=== PATIENT | male | born 1940 | race Two or more races ===

== ENCOUNTER 2021-07-01 21:04 | Emergency (ER) | payer OTHER ==
[~2021-07-01] VITALS: Ht 165.1 cm; Wt 90.7 kg
[2021-07-01 21:05] VITALS: BP 155/94
[2021-07-01 22:33] LABS: Basophils # (auto) 0 10 ^3/uL (0-0.2); Basophils % (auto) 0.6 % (0.0-2.0); Eosinophils # (auto) 0 10 ^3/uL (0-0.8); Eosinophils % (auto) 1.3 % (0.0-7.0); Hematocrit 29.1 % (41.0-53.0); Hemoglobin 9.7 g/dL (13.5-17.5); Mean Corpuscular Hgb Conc. 33.2 g/dL (32.0-36.0); Mean Corpuscular Volume 90.4 fL (80.0-100.0); Neutrophils # (auto) 1.6 10 ^3/uL (1.6-8.6); Nucleated Red Blood Cells % 0.1 %; Red Blood Cells 3.22 10^6/uL (4.5-5.90); Red Cell Distribution Width 14.8 % (11.8-14.3); White Blood Cell 3.7 10^3/uL (4.4-10.8)
[2021-07-01 22:35] LABS: Monocytes % (auto) 28.1 % (0.0-12.0); Potassium 4.4 mmol/L (3.5-5.1)
[2021-07-01 22:46] LABS: Albumin 3.2 g/dL (3.4-5.0); BUN/Creatinine Ratio 23.2; Bilirubin, Total 1.6 mg/dL (0.2-1.0); Calcium 8.4 mg/dL (8.5-10.1); Total Protein 7.4 g/dL (6.4-8.2)
[2021-07-01] MEDS ORDERED: DexAMETHasone SOD PHOS 10MG/1ML VIAL INJ IM ONE (23:30)
[2021-07-02] MEDS ORDERED: PRED1PAK7 PO (00:13)
[2021-07-02] MEDS ORDERED: NAP500T GT (00:13)
== END 2021-07-02 01:11 | disposition home or self-care (01) ==
LOC: ER 21:04
DX: M25.50 Pain in unspecified joint (principal); I10 Essential (primary) hypertension
CPT/HCPCS: 36415; 80053; 83880; 84484; 85025; 93005; 96372; 99284; J1100

== ENCOUNTER 2021-10-03 16:35 | Inpatient (IN) | payer OTHER ==
[~2021-10-03] VITALS: Ht 165.1 cm; Wt 85.8 kg
[~2021-10-03 16:35] MED LIST: NAP500T GT; PRED1PAK7 PO
[2021-10-03 18:24] LABS: Hemoglobin 9.6 g/dL (13.5-17.5); Mean Corpuscular Volume 93.6 fL (80.0-100.0); Red Blood Cells 3.31 10^6/uL (4.5-5.90); White Blood Cell 4.5 10^3/uL (4.4-10.8)
[2021-10-03 18:26] LABS: Mean Corpuscular Hemoglobin 29.1 pg (28.0-32.0); Mean Corpuscular Hgb Conc. 31.1 g/dL (32.0-36.0); Red Cell Distribution Width 19.6 % (11.8-14.3)
[2021-10-03 18:35] LABS: Albumin 3.4 g/dL (3.4-5.0); Calcium 9.2 mg/dL (8.5-10.1); Potassium 4.2 mmol/L (3.5-5.1)
[2021-10-03 18:36] LABS: Basophils % (manual) 0 (0.0-2.0); Blast Cells 0; Eosinophils % (manual) 0 (0-7); Metamyelocytes % 0; Myelocytes % 0; Promyelocytes % 0; Reactive Lymphocytes 0
[2021-10-03 18:39] LABS: BUN/Creatinine Ratio 14.1; Bilirubin, Total 0.8 mg/dL (0.2-1.0); Total Protein 7.4 g/dL (6.4-8.2)
[2021-10-03 19:13] LABS: INR 0.97 (0.9-1.15); Partial Thromboplastin Time 25.9 sec (24.6-33.4)
[2021-10-03 19:49] LABS: Band Neutrophils % (manual) 1; Lymphocytes % (manual) 53 (10.0-50.0); Monocytes % (manual) 10 (0-12)
[2021-10-03 21:52] LABS: Urine Bacteria FEW /hpf (None Seen); Urine Blood Negative /uL (Negative); Urine Specific Gravity 1.007 (1.001-1.035); Urine WBC <1 /hpf (0 - 3)
[2021-10-04] MEDS ORDERED: ACETAMINOPHEN 325 MG TAB PO PRN (01:00)
[2021-10-04] MEDS ORDERED: DOCUSATE SOD 100 MG CAP PO PRN (01:00)
[2021-10-04] MEDS ORDERED: ONDANSETRON HCL 4 MG/2 ML VIAL IV PRN (01:00)
[2021-10-04] MEDS ORDERED: MECLIZINE HCL 25 MG TAB PO PRN (01:00)
[2021-10-04] MEDS ORDERED: NITROGLYCERIN 0.4 MG SL TAB SL PRN (03:45)
[2021-10-04] MEDS ORDERED: MORPHINE SULFATE INJ 2 MG/ml SYRG IV PRN (03:45)
[2021-10-04] MEDS: SODIUM CHLOR 0.9% PF (SALINE LOCK) 10ML VIAL/SYR IV SCH ×2 (06:00→14:25)
[2021-10-04] MEDS: MULTIPLE VITAMIN TAB PO SCH (10:15)
[2021-10-04] MEDS: FAMOTIDINE (10MG/ML) 2ML VL IV SCH (10:15)
[2021-10-04 11:09] LABS: Basophils # (auto) 0 10 ^3/uL (0-0.2); Basophils % (auto) 0.4 % (0.0-2.0); Eosinophils # (auto) 0 10 ^3/uL (0-0.8); Eosinophils % (auto) 0.4 % (0.0-7.0); Hematocrit 33.7 % (41.0-53.0); Hemoglobin 10.6 g/dL (13.5-17.5); Lymphocytes % (auto) 22.7 % (10.0-50.0); Mean Corpuscular Hemoglobin 29.6 pg (28.0-32.0); Mean Corpuscular Hgb Conc. 31.3 g/dL (32.0-36.0); Mean Corpuscular Volume 94.6 fL (80.0-100.0); Monocytes # (auto) 0.8 10 ^3/uL (0-1.3); Monocytes % (auto) 17.9 % (0.0-12.0); Neutrophils # (auto) 2.7 10 ^3/uL (1.6-8.6); Neutrophils % (auto) 58.6 % (37.0-80.0); Red Blood Cells 3.56 10^6/uL (4.5-5.90); White Blood Cell 4.5 10^3/uL (4.4-10.8)
[2021-10-04 11:29] LABS: Albumin 3.7 g/dL (3.4-5.0); Calcium 9.2 mg/dL (8.5-10.1); Potassium 4.6 mmol/L (3.5-5.1)
[2021-10-04 11:34] LABS: BUN/Creatinine Ratio 13.7
[2021-10-04] MEDS ORDERED: METOPROLOL TARTRATE 50 MG TAB PO SCH (12:00)
[2021-10-04] MEDS: METOPROLOL SUCCINATE XL 50 MG TAB PO SCH (12:02)
[2021-10-04 22:00] VITALS: BP 129/73
[2021-10-05 05:00] VITALS: BP 124/76
[2021-10-05] MEDS: SODIUM CHLOR 0.9% PF (SALINE LOCK) 10ML VIAL/SYR IV SCH ×2 (06:14→13:45)
[2021-10-05 07:54] LABS: Basophils # (auto) 0 10 ^3/uL (0-0.2); Basophils % (auto) 0.6 % (0.0-2.0); Eosinophils # (auto) 0 10 ^3/uL (0-0.8); Eosinophils % (auto) 0.6 % (0.0-7.0); Hematocrit 32.6 % (41.0-53.0); Hemoglobin 10.2 g/dL (13.5-17.5); Lymphocytes # (auto) 1.3 10 ^3/uL (0.4-5.4); Lymphocytes % (auto) 26.9 % (10.0-50.0); Mean Corpuscular Hemoglobin 29.9 pg (28.0-32.0); Mean Corpuscular Hgb Conc. 31.2 g/dL (32.0-36.0); Mean Corpuscular Volume 95.8 fL (80.0-100.0); Monocytes # (auto) 1.1 10 ^3/uL (0-1.3); Neutrophils # (auto) 2.3 10 ^3/uL (1.6-8.6); Neutrophils % (auto) 47.7 % (37.0-80.0); Nucleated Red Blood Cells % 0.1 %; Red Cell Distribution Width 19.3 % (11.8-14.3); White Blood Cell 4.7 10^3/uL (4.4-10.8)
[2021-10-05 08:17] LABS: Calcium 9.1 mg/dL (8.5-10.1); Potassium 4.2 mmol/L (3.5-5.1)
[2021-10-05 08:23] LABS: Albumin 3.5 g/dL (3.4-5.0); BUN/Creatinine Ratio 18.2; Bilirubin, Total 2.1 mg/dL (0.2-1.0); Monocytes % (auto) 24.2 % (0.0-12.0); Total Protein 7.4 g/dL (6.4-8.2)
[2021-10-05 09:00] VITALS: BP 131/79
[2021-10-05] MEDS: FAMOTIDINE (10MG/ML) 2ML VL IV SCH (09:44)
[2021-10-05] MEDS: MULTIPLE VITAMIN TAB PO SCH (09:45)
[2021-10-05] MEDS: METOPROLOL SUCCINATE XL 50 MG TAB PO SCH (09:45)
[2021-10-05 13:00] VITALS: BP 112/75
[2021-10-05 17:00] VITALS: BP 136/68
[2021-10-05 22:00] VITALS: BP 152/71
[2021-10-06 05:00] VITALS: BP 111/72
[2021-10-06] MEDS: SODIUM CHLOR 0.9% PF (SALINE LOCK) 10ML VIAL/SYR IV SCH ×3 (06:00→22:13)
[2021-10-06 08:00] VITALS: BP 106/66
[2021-10-06 09:24] VITALS: BP 106/66
[2021-10-06] MEDS: MULTIPLE VITAMIN TAB PO SCH (09:30)
[2021-10-06] MEDS: METOPROLOL SUCCINATE XL 50 MG TAB PO SCH (09:30)
[2021-10-06] MEDS: FAMOTIDINE (10MG/ML) 2ML VL IV SCH (09:30)
[2021-10-06 12:51] VITALS: BP_SYST 104; BP_SYST 110; BP_DIAS 66; BP_DIAS 70; BP_DIAS 71
[2021-10-06 16:56] VITALS: BP 111/68
[2021-10-06 22:00] VITALS: BP 120/77
[2021-10-07 05:00] VITALS: BP 110/69
[2021-10-07] MEDS: SODIUM CHLOR 0.9% PF (SALINE LOCK) 10ML VIAL/SYR IV SCH ×3 (05:39→22:34)
[2021-10-07 08:48] VITALS: BP 118/73
[2021-10-07] MEDS: MULTIPLE VITAMIN TAB PO SCH (10:11)
[2021-10-07] MEDS: METOPROLOL SUCCINATE XL 50 MG TAB PO SCH (10:12)
[2021-10-07 10:13] LABS: Cholesterol 155 mg/dL (< 200); HDL Cholesterol 49 mg/dL (40-59); LDL Cholesterol 114 mg/dL (< 100); Triglycerides 95 mg/dL (< 150)
[2021-10-07] MEDS: ASPirin-EC 81 mg tab PO SCH (10:13)
[2021-10-07] MEDS ORDERED: OPTISON 3ml Vial for INJ IV ONE (11:12)
[2021-10-07 12:57] VITALS: BP 110/69
[2021-10-07 17:00] VITALS: BP 101/68
[2021-10-07 22:00] VITALS: BP 121/77
[2021-10-07] MEDS: ATORVASTATIN 20 MG TAB PO SCH (22:34)
[2021-10-07] MEDS: ENOXAPARIN SOD 100 MG/1 ML SYRINGE SC SCH (22:35)
[2021-10-08 05:00] VITALS: BP 108/59
[2021-10-08 09:00] VITALS: BP 113/66
[2021-10-08] MEDS: MULTIPLE VITAMIN TAB PO SCH (09:57)
[2021-10-08] MEDS: ASPirin-EC 81 mg tab PO SCH (09:57)
[2021-10-08] MEDS: METOPROLOL SUCCINATE XL 50 MG TAB PO SCH (09:58)
[2021-10-08] MEDS: ENOXAPARIN SOD 100 MG/1 ML SYRINGE SC SCH (09:58)
[2021-10-08] MEDS: HYDROcodone-ACET 5/325MG TAB PO PRN (10:15)
[2021-10-08 13:00] VITALS: BP_SYST 100; BP_SYST 96; BP_DIAS 55; BP_DIAS 60
[2021-10-08 16:53] VITALS: BP 119/66
[2021-10-08] MEDS ORDERED: PANTOPRAZOLE 40 MG TAB PO SCH (17:30)
[2021-10-08] MEDS: SODIUM CHLOR 0.9% PF (SALINE LOCK) 10ML VIAL/SYR IV SCH ×3 (18:03→22:37)
[2021-10-08] MEDS ORDERED: METOPROLOL TARTRATE 25 MG TAB PO ONE (21:00)
[2021-10-08 22:00] VITALS: BP 111/70
[2021-10-08] MEDS: ATORVASTATIN 20 MG TAB PO SCH (22:36)
[2021-10-08] MEDS: ENOXAPARIN SOD 80 MG/0.8ML SYRINGE SC SCH (22:37)
[2021-10-09 05:00] VITALS: BP 112/70
[2021-10-09] MEDS: SODIUM CHLOR 0.9% PF (SALINE LOCK) 10ML VIAL/SYR IV SCH ×3 (06:07→21:32)
[2021-10-09 06:37] LABS: White Blood Cell 3.2 10^3/uL (4.4-10.8)
[2021-10-09 06:39] LABS: Hematocrit 26.3 % (41.0-53.0); Hemoglobin 8.5 g/dL (13.5-17.5); Mean Corpuscular Hemoglobin 30.2 pg (28.0-32.0); Mean Corpuscular Hgb Conc. 32.2 g/dL (32.0-36.0); Mean Corpuscular Volume 93.9 fL (80.0-100.0); Red Cell Distribution Width 19.9 % (11.8-14.3)
[2021-10-09 06:42] LABS: Band Neutrophils % (manual) 0; Basophils % (manual) 0 (0.0-2.0); Blast Cells 0; Metamyelocytes % 0; Promyelocytes % 0; Reactive Lymphocytes 0
[2021-10-09 06:55] LABS: Albumin 2.8 g/dL (3.4-5.0); Calcium 8.5 mg/dL (8.5-10.1); Magnesium 2.4 mg/dL (1.6-2.6); Potassium 3.6 mmol/L (3.5-5.1)
[2021-10-09 06:59] LABS: BUN/Creatinine Ratio 23.2; Bilirubin, Total 1.9 mg/dL (0.2-1.0); Phosphorus 2.7 mg/dL (2.5-4.90); Total Protein 6.5 g/dL (6.4-8.2)
[2021-10-09 07:02] LABS: Eosinophils % (manual) 2 (0-7); Lymphocytes % (manual) 41 (10.0-50.0); Monocytes % (manual) 15 (0-12); Myelocytes % 1
[2021-10-09 08:23] VITALS: BP 113/76
[2021-10-09] MEDS: ENOXAPARIN SOD 80 MG/0.8ML SYRINGE SC SCH ×2 (10:00→21:36)
[2021-10-09] MEDS: ASPirin-EC 81 mg tab PO SCH (10:00)
[2021-10-09] MEDS: MULTIPLE VITAMIN TAB PO SCH (10:03)
[2021-10-09] MEDS: METOPROLOL SUCCINATE XL 50 MG TAB PO SCH (10:06)
[2021-10-09] MEDS: PANTOPRAZOLE 40 MG/10 ML VIAL INJ IV SCH ×2 (10:12→21:32)
[2021-10-09] MEDS ORDERED: GOLYTELY 4L KIT PO ONE (11:45)
[2021-10-09] MEDS: SUCRALFATE 1 GM/10 ML ORAL SUSP GT SCH ×3 (12:12→21:32)
[2021-10-09 12:30] LABS: INR 1.03 (0.9-1.15)
[2021-10-09 12:40] VITALS: BP 113/69
[2021-10-09 16:52] VITALS: BP 109/65
[2021-10-09] MEDS: ATORVASTATIN 20 MG TAB PO SCH (21:32)
[2021-10-09 22:00] VITALS: BP 119/67
[2021-10-10 03:13] LABS: Hematocrit 24.3 % (41.0-53.0); Hemoglobin 8.1 g/dL (13.5-17.5); Mean Corpuscular Hemoglobin 30.6 pg (28.0-32.0); Mean Corpuscular Hgb Conc. 33.1 g/dL (32.0-36.0); Mean Corpuscular Volume 92.6 fL (80.0-100.0); Red Blood Cells 2.63 10^6/uL (4.5-5.90); Red Cell Distribution Width 19.1 % (11.8-14.3)
[2021-10-10 03:16] LABS: Basophils % (manual) 0 (0.0-2.0); Blast Cells 0; Eosinophils % (manual) 0 (0-7); Metamyelocytes % 0; Monocytes % (manual) 0 (0-12); Myelocytes % 0; Promyelocytes % 0; Reactive Lymphocytes 0
[2021-10-10 03:30] LABS: Albumin 2.9 g/dL (3.4-5.0); BUN/Creatinine Ratio 20.3; Calcium 8.2 mg/dL (8.5-10.1)
[2021-10-10 03:32] LABS: Bilirubin, Total 1.6 mg/dL (0.2-1.0); INR 1.03 (0.9-1.15); Total Protein 6.8 g/dL (6.4-8.2)
[2021-10-10 05:00] VITALS: BP 130/73
[2021-10-10] MEDS: SODIUM CHLOR 0.9% PF (SALINE LOCK) 10ML VIAL/SYR IV SCH ×3 (06:09→22:10)
[2021-10-10] MEDS: SUCRALFATE 1 GM/10 ML ORAL SUSP GT SCH ×4 (06:20→22:10)
[2021-10-10 07:20] LABS: Band Neutrophils % (manual) 4; Lymphocytes % (manual) 43 (10.0-50.0)
[2021-10-10] MEDS: ENOXAPARIN SOD 80 MG/0.8ML SYRINGE SC SCH ×2 (08:18→21:39)
[2021-10-10] MEDS: ASPirin-EC 81 mg tab PO SCH (08:18)
[2021-10-10] MEDS: MULTIPLE VITAMIN TAB PO SCH (08:19)
[2021-10-10] MEDS: METOPROLOL SUCCINATE XL 50 MG TAB PO SCH (08:19)
[2021-10-10] MEDS: PANTOPRAZOLE 40 MG/10 ML VIAL INJ IV SCH ×2 (08:19→22:10)
[2021-10-10] MEDS ORDERED: PROPOFOL 10 MG/ML 20 ML IV ONE (08:22)
[2021-10-10] MEDS ORDERED: SODIUM CHLORIDE LOCK 10 ML ONE (08:22)
[2021-10-10] MEDS ORDERED: fentaNYL CITRATE 100 MCG/2 ML VL ONE (08:22)
[2021-10-10] MEDS ORDERED: ONDANSETRON HCL 4 MG/2 ML VIAL ONE (08:22)
[2021-10-10] MEDS ORDERED: MIDAZOLAM HCL 2MG/2ML 2ml VIAL (1mg/ml) ONE (08:22)
[2021-10-10] MEDS ORDERED: POTASSIUM CHL 20 Meq TABLET PO ONE (09:00)
[2021-10-10 09:30] VITALS: BP 126/77
[2021-10-10] MEDS: POTASSIUM CHL 20MEQ/100ML 100 ML IV SCH ×2 (10:25→12:30)
[2021-10-10 13:11] VITALS: BP 116/62
[2021-10-10 16:47] VITALS: BP 113/75
[2021-10-10 22:00] VITALS: BP 124/70
[2021-10-10] MEDS: ATORVASTATIN 20 MG TAB PO SCH (22:10)
[2021-10-11 05:00] VITALS: BP 107/65
[2021-10-11] MEDS: SODIUM CHLOR 0.9% PF (SALINE LOCK) 10ML VIAL/SYR IV SCH ×3 (05:39→22:00)
[2021-10-11] MEDS: SUCRALFATE 1 GM/10 ML ORAL SUSP GT SCH ×4 (06:29→21:15)
[2021-10-11 08:10] VITALS: BP 138/60
[2021-10-11 09:00] VITALS: BP 138/60
[2021-10-11] MEDS: PANTOPRAZOLE 40 MG/10 ML VIAL INJ IV SCH ×2 (09:32→21:15)
[2021-10-11] MEDS: METOPROLOL SUCCINATE XL 50 MG TAB PO SCH (09:33)
[2021-10-11] MEDS: MULTIPLE VITAMIN TAB PO SCH (09:33)
[2021-10-11] MEDS: ENOXAPARIN SOD 80 MG/0.8ML SYRINGE SC SCH ×2 (10:00→21:15)
[2021-10-11] MEDS: ASPirin-EC 81 mg tab PO SCH (10:00)
[2021-10-11 13:00] VITALS: BP 134/79
[2021-10-11] MEDS: HYDROcodone-ACET 5/325MG TAB PO PRN (14:27)
[2021-10-11 17:00] VITALS: BP 106/58
[2021-10-11] MEDS: ATORVASTATIN 20 MG TAB PO SCH (21:15)
[2021-10-11 22:00] VITALS: BP 131/74
[2021-10-12 05:00] VITALS: BP 126/84
[2021-10-12] MEDS: SODIUM CHLOR 0.9% PF (SALINE LOCK) 10ML VIAL/SYR IV SCH ×3 (06:00→21:49)
[2021-10-12] MEDS: SUCRALFATE 1 GM/10 ML ORAL SUSP GT SCH ×4 (07:00→21:37)
[2021-10-12 07:10] LABS: Albumin 2.9 g/dL (3.4-5.0); BUN/Creatinine Ratio 7.4; Calcium 8.7 mg/dL (8.5-10.1); Hematocrit 25.9 % (41.0-53.0); Hemoglobin 8.4 g/dL (13.5-17.5); Mean Corpuscular Hemoglobin 30.3 pg (28.0-32.0); Mean Corpuscular Hgb Conc. 32.5 g/dL (32.0-36.0); Mean Corpuscular Volume 93.2 fL (80.0-100.0); Phosphorus 2.4 mg/dL (2.5-4.90); Potassium 3.9 mmol/L (3.5-5.1); Red Blood Cells 2.78 10^6/uL (4.5-5.90); Red Cell Distribution Width 18.7 % (11.8-14.3); White Blood Cell 3.2 10^3/uL (4.4-10.8)
[2021-10-12 07:16] LABS: Basophils % (manual) 0 (0.0-2.0); Blast Cells 0; Metamyelocytes % 0; Myelocytes % 0; Promyelocytes % 0; Reactive Lymphocytes 0
[2021-10-12 07:54] LABS: Band Neutrophils % (manual) 3; Eosinophils % (manual) 3 (0-7); Lymphocytes % (manual) 35 (10.0-50.0); Monocytes % (manual) 20 (0-12)
[2021-10-12 08:00] VITALS: BP 117/84
[2021-10-12 09:00] VITALS: BP 117/84
[2021-10-12] MEDS ORDERED: fentaNYL CITRATE 100 MCG/2 ML VL ONE (09:31)
[2021-10-12] MEDS ORDERED: ONDANSETRON HCL 4 MG/2 ML VIAL ONE (09:31)
[2021-10-12] MEDS ORDERED: SODIUM CHLORIDE LOCK 10 ML ONE (09:31)
[2021-10-12] MEDS ORDERED: MIDAZOLAM HCL 2MG/2ML 2ml VIAL (1mg/ml) ONE (09:31)
[2021-10-12] MEDS ORDERED: PROPOFOL 10 MG/ML 20 ML IV ONE (09:31)
[2021-10-12] MEDS ORDERED: METOCLOPRAMIDE HCL 5MG/ml INJ 2ml VIAL IV PRN (11:00)
[2021-10-12] MEDS ORDERED: HYDROmorphone HCL 2 MG/ML VL/or syr IV PRN (11:00)
[2021-10-12] MEDS ORDERED: MORPHINE SULFATE 4 MG/ML SYR/VIAL IV PRN (11:00)
[2021-10-12 11:40] VITALS: BP 117/70
[2021-10-12] MEDS: PANTOPRAZOLE 40 MG/10 ML VIAL INJ IV SCH ×2 (11:51→21:37)
[2021-10-12] MEDS: ASPirin-EC 81 mg tab PO SCH (11:51)
[2021-10-12] MEDS: ENOXAPARIN SOD 80 MG/0.8ML SYRINGE SC SCH (11:52)
[2021-10-12] MEDS: MULTIPLE VITAMIN TAB PO SCH (11:52)
[2021-10-12] MEDS: METOPROLOL SUCCINATE XL 50 MG TAB PO SCH (11:52)
[2021-10-12 17:00] VITALS: BP 110/71
[2021-10-12] MEDS ORDERED: WARFARIN SODIUM 5 MG TAB PO ONE (17:00)
[2021-10-12] MEDS: ATORVASTATIN 20 MG TAB PO SCH (21:37)
[2021-10-12 22:00] VITALS: BP 104/74
[2021-10-13 05:00] VITALS: BP 108/66
[2021-10-13 05:38] LABS: INR 1.03 (0.9-1.15)
[2021-10-13] MEDS: SODIUM CHLOR 0.9% PF (SALINE LOCK) 10ML VIAL/SYR IV SCH ×2 (06:00→14:10)
[2021-10-13] MEDS: SUCRALFATE 1 GM/10 ML ORAL SUSP GT SCH ×2 (07:37→12:30)
[2021-10-13 08:10] VITALS: BP 101/68
[2021-10-13 08:37] VITALS: BP 101/68
[2021-10-13] MEDS: ASPirin-EC 81 mg tab PO SCH (09:57)
[2021-10-13] MEDS: MULTIPLE VITAMIN TAB PO SCH (09:58)
[2021-10-13] MEDS: PANTOPRAZOLE 40 MG/10 ML VIAL INJ IV SCH (09:58)
[2021-10-13] MEDS: METOPROLOL SUCCINATE XL 50 MG TAB PO SCH (09:58)
[2021-10-13] MEDS ORDERED: SUCR1SUS10 GT (11:07)
[2021-10-13] MEDS ORDERED: WARF5TAB71 PO (11:07)
[2021-10-13] MEDS ORDERED: PANT40TA2 PO (11:07)
[2021-10-13] MEDS ORDERED: METO-6 PO (11:07)
[2021-10-13] MEDS ORDERED: ATOR20TA50 PO (11:07)
[2021-10-13] MEDS ORDERED: DOCU100C10 PO (11:07)
[2021-10-13] MEDS ORDERED: FER325T PO (11:12)
[2021-10-13 12:24] VITALS: BP 108/58
[2021-10-13] MEDS: HYDROcodone-ACET 5/325MG TAB PO PRN (12:30)
[2021-10-13 13:40] VITALS: BP 108/58
[2021-10-13] MEDS ORDERED: WARFARIN SODIUM 2.5 MG TAB PO ONE (17:00)
== END 2021-10-13 14:30 | disposition hospice, home (50) | DRG 812 ==
LOC: ER 16:35 → OVERFLOW 10-04 03:33 → TELE-CENTR 10-04 20:06
PROVIDERS: ADMIT Nurse Practitioner Family; ATTEND Nurse Practitioner
PROC: 4B02XSZ Measurement of Cardiac Pacemaker, External Approach (ICD-10-PCS; 2021-10-07)
PROC: 0DJ08ZZ Inspection of Upper Intestinal Tract, Via Natural or Artificial Opening Endoscopic (ICD-10-PCS; principal; 2021-10-12 10:05)
PROC: 0DJD8ZZ Inspection of Lower Intestinal Tract, Via Natural or Artificial Opening Endoscopic (ICD-10-PCS; 2021-10-12 10:05)
DX: D64.9 Anemia, unspecified (principal); G93.40 Encephalopathy, unspecified; I48.20 Chronic atrial fibrillation, unspecified; K29.70 Gastritis, unspecified, without bleeding; K29.80 Duodenitis without bleeding; R55 Syncope and collapse; I10 Essential (primary) hypertension; M19.90 Unspecified osteoarthritis, unspecified site; E87.6 Hypokalemia; G89.29 Other chronic pain; M54.16 Radiculopathy, lumbar region; Z20.822 Contact with and (suspected) exposure to COVID-19; I25.10 Atherosclerotic heart disease of native coronary artery without angina pectoris; K64.8 Other hemorrhoids; R19.7 Diarrhea, unspecified; I25.5 Ischemic cardiomyopathy; Z95.0 Presence of cardiac pacemaker; Z51.5 Encounter for palliative care; Z86.73 Personal history of transient ischemic attack (TIA), and cerebral infarction without residual deficits
CPT/HCPCS: 36415; 70450; 71045; 80048; 80053; 80061; 80069; 81001; 82270; 82962; 83735; 84100; 84132; 84443; 84484; 85007; 85025; 85027; 85610; 85730; 86850; 86900; 86901; 87045; 87427; 87493; 93005; 93306; 93886; 95819; 97110; 97116; 97163; 97530; C9113; G0378; J2250; J2405; J2704; J3480; J3490; Q9956

== ENCOUNTER 2023-01-21 12:02 | Emergency (ER) | payer OTHER ==
[~2023-01-21] VITALS: Ht 165.1 cm; Wt 77.8 kg
[~2023-01-21 12:02] MED LIST changes: +ATOR20TA50 PO; +DOCU-265 PO; +FER325T PO; +METO-6 PO; -NAP500T GT; +PANT40TA2 PO; -PRED1PAK7 PO; +SUCR1SUS26 GT; +WARF-66 PO
[2023-01-21 13:05] LABS: Basophils # (auto) 0 10 ^3/uL (0-0.2); Basophils % (auto) 0.3 % (0.0-2.0); Eosinophils # (auto) 0 10 ^3/uL (0-0.8); Eosinophils % (auto) 0.4 % (0.0-7.0); Hematocrit 22.3 % (41.0-53.0); Lymphocytes # (auto) 0.8 10 ^3/uL (0.4-5.4); Lymphocytes % (auto) 26.2 % (10.0-50.0); Mean Corpuscular Hemoglobin 32.3 pg (28.0-32.0); Mean Corpuscular Hgb Conc. 31.1 g/dL (32.0-36.0); Mean Corpuscular Volume 103.9 fL (80.0-100.0); Monocytes # (auto) 0.3 10 ^3/uL (0-1.3); Monocytes % (auto) 10.5 % (0.0-12.0); Neutrophils # (auto) 1.9 10 ^3/uL (1.6-8.6); Neutrophils % (auto) 62.6 % (37.0-80.0); Nucleated Red Blood Cells % 0.2 %; Red Blood Cells 2.15 10^6/uL (4.5-5.90); Red Cell Distribution Width 19.4 % (11.8-14.3); White Blood Cell 3.1 10^3/uL (4.4-10.8)
[2023-01-21 13:07] LABS: Hemoglobin 6.9 g/dL (13.5-17.5)
[2023-01-21 13:58] LABS: Alanine Aminotransferase 12 U/L (7-40); Albumin 3.6 g/dL (3.2-4.8); Alkaline Phosphatase 77 U/L (46-116); Anion Gap 6 (5-15); Aspartate Aminotransferase 19 U/L (13-40); BUN/Creatinine Ratio 20.9 (10.0-20.0); Blood Urea Nitrogen 19 mg/dL (9-23); Calcium 8.4 mg/dL (8.7-10.4); Carbon Dioxide 24 mmol/L (20-30); Chloride 107 mmol/L (98-107); Glucose 128 mg/dL (74-106); Potassium 4.3 mmol/L (3.5-5.1); Sodium 137 mmol/L (136-145)
[2023-01-21 13:59] LABS: Total Protein 7.4 g/dL (5.7-8.2)
[2023-01-21 14:19] LABS: Folate (Folic Acid) 20.53 ng/mL (>5.38)
[2023-01-21 23:27] VITALS: O2SAT 98
[2023-01-21 23:46] VITALS: BP 125/58; PULSE 76; RESP 14; TEMP 97.8
[2023-01-22 00:07] VITALS: BP 109/61; PULSE 73; RESP 14; TEMP 98
[2023-01-22 02:12] VITALS: BP 124/62; PULSE 62; RESP 12; TEMP 98.1
[2023-01-22 02:33] VITALS: BP 129/66; PULSE 65; RESP 12; TEMP 98.3
[2023-01-22 02:55] VITALS: BP 120/65; PULSE 63; RESP 12; TEMP 98
[2023-01-22 05:40] VITALS: BP 147/76; PULSE 79; RESP 19; TEMP 98.1
[2023-01-22 06:01] VITALS: BP 147/76; PULSE 76; RESP 15; O2SAT 99
== END 2023-01-22 06:20 | disposition hospice, home (50) ==
LOC: ER 12:02
DX: D64.9 Anemia, unspecified (principal); I10 Essential (primary) hypertension; M19.90 Unspecified osteoarthritis, unspecified site; Z98.890 Other specified postprocedural states; Z79.899 Other long term (current) drug therapy
CPT/HCPCS: 36415; 36430; 80053; 82607; 82746; 85025; 86850; 86900; 86901; 86920; 93005; 99291; P9016